=== PATIENT | male | born 1950 | race Caucasian/White ===

== ENCOUNTER 2016-09-24 23:33 | Emergency (ER) | payer BC, MEDICARE ==
--- NOTE | ~2016-09-24 | CT4 ---
[facility] A Service of [facility] & [facility] RADIOLOGY TEXT RESULTS PATIENT: JIGNESH KRAUS LOCATION: [facility] : 50 UNIT #: [id number] AGE: [address]: Alirio Talavera MD SEX: M ORDER DR: [id number] [facility] [address] [place], [place] [address] [id number] E MR#: [id number] Acc #: [id number] NAME: JIGNESH KRAUS. : 1950 SEX: M STUDY DATE/TIME: 09/25/2016 0:31 UNIT: [facility] ROOM: STUDY DESCRIPTION: CT Abd and Pelv Wo Cont Attending Physician: Alirio Talavera M.D. Ordering Physician: Alriio Talavera M.D. Primary Care Physician: Jaren Arredondo M.D. MEDICAL IMAGING REPORT This report is preliminary unless electronic signature is present EXAM CT abdomen and pelvis without IV contrast COMPARISON None INDICATIONS 66-year-old male with severe upper abdominal pain, nausea and emesis after colonoscopy today. This CT exam was performed with one or more of the following radiation dose reduction techniques: automatic exposure control, adjustment of mA and/or kV according to patient size, and iterative reconstruction. FINDINGS Axial CT imaging abdomen and pelvis was performed without IV contrast. Lack of IV contrast limits evaluation of adenopathy, vasculature and viscera. Coronal and sagittal reformats were constructed. A small fat-containing right inguinal hernia. Mild multilevel degenerative facet disease of the lumbar spine. Diffuse spondylosis of the anterior thoracic spine suggesting DISH. Small posterior disc protrusions at L2-L3 and L5-S1. Minimal dependent atelectasis in both lower lobes. Apparent nodule in the right lower lobe measuring up to 5 mm. Mild cardiomegaly. Layering density within the gallbladder lumen perhaps reflecting cholelithiasis or sludge. No evidence of acute cholecystitis. The liver, spleen, pancreas, adrenal glands and kidneys are unremarkable. No hydronephrosis or hydroureter. No renal or ureteral calculus. Urinary bladder is unremarkable. Minimal central prostatic calcification, nonspecific finding perhaps reflecting remote prostatitis. No evidence of bowel obstruction. No pneumoperitoneum. There is a small diverticulum of the left colon without evidence of acute diverticulitis. Appendix is not definitely seen and may be surgically absent. No free fluid. Normal caliber abdominal aorta with diffuse calcification extending in the iliac STS. [facility] A Service of [facility] & [facility] RADIOLOGY TEXT RESULTS PATIENT: JIGNESH KRAUS [id number] 50 UNIT #: [id number] AGE: [address]: Alirio Talavera MD SEX: M ORDER DR: arteries. Also calcification of the origins of the superior mesenteric artery and left renal artery. Minimal calcifications at the origin of the right renal artery. No adenopathy. There are scattered lymph nodes in the superior mesenteric margin which measures up to 9 mm, likely reactive. IMPRESSION 1. No evidence of bowel obstruction or perforation. 2. Scattered prominent lymph nodes in the superior right mesentery measuring up to 9 mm, likely reactive. 3. Appendix is not definitively seen and may be surgically absent. No secondary findings to suggest acute appendicitis. 4. There is a 5 mm noncalcified nodule in the right lower lobe. 5. If the patient has risk factors for pulmonary malignancy CT chest without IV contrast is recommended 6 months. Otherwise followup chest CT without IV contrast is recommended 12 months. 6. Mild cardiomegaly. 7. Apparent density layering in the gallbladder lumen perhaps reflecting sludge or cholelithiasis. No evidence of acute cholecystitis. 8. Very small fat-containing right inguinal hernia. 9. Degenerative disc disease of the lumbar spine as described in the body of the report. 10. Arterial calcification in the abdomen and pelvis. Dictated by... Kurtis Garza M.D. THIS IS AN ELECTRONICALLY VERIFIED REPORT Kurtis Garza M.D. at 10/01/2016 8:12 AM Domonique TD: 09/25/2016 08:52 JOB #: [id number] MEDICAL IMAGING REPORT COPY
[~2016-09-24 23:33] MED LIST: ASPIRIN ENTERI325 M1 PO; BENICAR HCT 40-1 TA1 PO; BENICAR HCT 40-1 TAB PO; BENICAR PO; BYSTOLIC10 MG PO; BYSTOLIC2.5 MG PO; CEFEPIME 11 GM/50 ML IV; EC-NAPROSYN500 MG PO; NAPROSYN-EC500 M1 PO; ZOLOFT50 MG PO; ZYVOX600 MG PO
[2016-09-24 23:41] LABS: BASOPHIL% 0.3 % (0-2.5); EOSINOPHIL% 0.1 % (0.0-7.0); HEMATOCRIT 43.8 % (38.0-50.0); HEMOGLOBIN 15.3 gm/dL (13.0-16.0); LYMPHOCYTE# 0.8 X10e3 (1.0-3.5); LYMPHOCYTE% 12.4 % (17.0-45.0); MEAN CORPUSCULAR HEMOGLOBIN 30.5 PG (28-34); MEAN PLATELET VOLUME 7.6 FL (6.5-11.5); MONOCYTE# 0.2 X10e3 (0-1.0); MONOCYTE% 2.8 % (3.0-12.0); NEUTROPHIL# 5.4 X10e3 (1.5-7.1); NEUTROPHIL% 84.4 % (40-75); PLATELET COUNT 119 X10e3 (140-420); RED BLOOD COUNT 5.04 X10e (3.90-5.60); RED CELL DISTRIBUTION WIDTH 14.1 % (11.0-15.5); WHITE BLOOD COUNT 6.4 X10e3 (4.0-10.5)
[2016-09-24 23:44] LABS: DIFF IND NO
[2016-09-24 23:54] LABS: INR 1.1; PARTIAL THROMBOPLASTIN TIME 26.4 SECONDS (23.5-31.3); PROTHROMBIN TIME (PATIENT) 11.6 SECONDS (9.6-11.5)
[2016-09-25 00:08] LABS: ALBUMIN SERUM 4.2 g/dL (3.5-5.0); BILIRUBIN, DIRECT 0.2 mg/dL (0.0-0.2); BILIRUBIN,INDIRECT 0.8 mg/dL (0.0-0.9); BUN/CREATININE RATIO 15.62; CALCIUM SERUM 8.8 mg/dL (8.4-10.2); CREATININE SERUM 1.6 mg/dL (0.6-1.4); GLOM FILT RATE Estimated 46.2 mL/min (>60); POTASSIUM 3.9 mmol/L (3.5-5.1); PROTEIN TOTAL SERUM 6.8 g/dL (6.0-8.3)
[2016-09-25 00:54] LABS: URINE SOURCE CLEAN CATCH
[2016-09-25 01:02] LABS: URINE APPEARANCE CLOUDY; URINE BILIRUBIN NEG (NEG); URINE BLOOD NEG (NEG); URINE COLOR YELLOW; URINE GLUCOSE NEG (NEG); URINE KETONE 1+ (NEG); URINE LEUKOCYTE ESTERASE NEG (NEG); URINE NITRATE NEG (NEG); URINE PROTEIN NEG (NEG); URINE SPECIFIC GRAVITY 1.021 (1.003-1.035); URINE UROBILINOGEN 0.2 MG/DL (NEG)
[2016-09-25 01:08] LABS: CULTURE INDICATED? NO
== END 2016-09-25 02:13 | disposition home or self-care (01) ==
LOC: CED 23:33
PROVIDERS: Emergency Medicine
DX: I12.9 Hypertensive chronic kidney disease with stage 1 through stage 4 chronic kidney disease, or unspecified chronic kidney disease (principal); N18.9 Chronic kidney disease, unspecified; Z88.8 Allergy status to other drugs, medicaments and biological substances; Z79.899 Other long term (current) drug therapy
CPT/HCPCS: 36415; 74176; 80048; 80076; 81003; 83690; 85025; 85610; 85730; 96361; 96374; 96375; 99284; J2270; J2405